=== PATIENT | female | born 1970 | race Caucasian/White ===

== ENCOUNTER 2017-04-12 14:16 | Emergency (ER) | payer MEDICARE, OTHER ==
[~2017-04-12] VITALS: Ht 157.5 cm; Wt 113.4 kg
[~2017-04-12 14:16] MED LIST: ASPI-702; BENZ100C PO; BISA5TAB; BUPR300T3; CRESTOR40 MG; CYCL-331; DOXY100T PO; EZET10TA18; GABA-586 PO; LORA0.5T96; METF10002 PO; NITR0.4T22; OMEP20CA9; PRAS10TA9; PRED20TA PO; PYRI60TA2 PO; TRAM-48; ZOLP5TAB PO
[2017-04-12 14:45] VITALS: BP 164/81
--- NOTE | 2017-04-12 18:03 | ED.ADGEN ---
Past History Past Medical History: Cancer, COPD, Diabetes, Fibromyalgia, [place], Other Past Surgical History: Hysterectomy, Oophorectomy, Spleenectomy, Other Smoking: Quit Less Than 1 Year Additional Smoking Information: 1 pack/day Alcohol Use: None Drug Use: None Adult General Chief Complaint Chief Complaint Right upper eyelid swelling HPI HPI Patient is a 46-year-old female presents with right upper eyelid swelling upon waking this morning. Patient states she had a cat hair underneath her upper eyelid yesterday which required surgical to remove. Patient denies foreign body sensation, but awoke with right upper eyelid swelling. Patient took Benadryl which is partial improvement. Patient also reports light crusting over lateral canthus. Denies foreign body sensation, eye tearing, change of vision, and tearing. Patient does not wear reactive lenses or glasses. No other symptoms or complaints. Review of Systems Review of Systems Review symptoms as per history of present illness. All other review symptoms are negative. . Allergies Allergies Allergies Coded Allergies Type Severity Reaction Last Updated Verified azithromycin Allergy Severe 05/13/15 Yes adhesive Allergy Intermediate tape 05/13/15 Yes fenofibrate Allergy Intermediate 05/13/15 Yes latex Allergy Intermediate 05/13/15 Yes morphine Adverse Reaction Intermediate Nausea and Vomiting 05/13/15 Yes Physical Exam Physical Exam Constitutional: Well developed, well nourished, no acute distress, non-toxic appearance. Eyes: Pupils PERRL, conjunctiva noninjected, allergic type swelling of left upper eyelid, no induration or cellulitis. No identifiable foreign bodies under upper or lower eyelid. No crusting. No pain with ocular motion Current Patient Data Vital Signs Vital Signs Date Time Temp Pulse Resp B/P (MAP) Pulse Ox O2 Delivery O2 Flow Rate FiO2 04/12/17 14:45 98.4 104 16 96 Room Air EKG EKG [] Radiology/Procedures Radiology/Procedures [] Course & Med Decision Making Course & Med Decision Making Pertinent Labs and Imaging studies reviewed. (See chart for details) [Eyelid swelling consistent with allergic blepharitis. No foreign body identified on comprehensive eye exam. Recommend continued supportive care. Topical antibiotics prescribed. PCP/ophthalmology follow-up as needed. Return precautions reviewed.] Final Impression Final Impression [1. allergic blepharitis] Problems: Dragon Disclaimer Dragon Disclaimer This electronic medical record was generated, in whole or in part, using a voice recognition dictation system. DAMIAN NOLAND DO Apr 12, 2017 18:03
[2017-04-13] MEDS ORDERED: HYDR-971 PO (18:46)
== END 2017-04-12 15:30 | disposition home or self-care (01) ==
LOC: ER 14:16
DX: H01.001 Unspecified blepharitis right upper eyelid (principal); E11.9 Type 2 diabetes mellitus without complications; M79.7 Fibromyalgia; I25.2 Old myocardial infarction; J44.9 Chronic obstructive pulmonary disease, unspecified; Z87.891 Personal history of nicotine dependence; Z88.5 Allergy status to narcotic agent; Z88.8 Allergy status to other drugs, medicaments and biological substances; Z88.1 Allergy status to other antibiotic agents; Z91.040 Latex allergy status
CPT/HCPCS: 99283

== ENCOUNTER 2017-04-13 17:35 | Emergency (ER) | payer MEDICARE, OTHER ==
[~2017-04-13] VITALS: Ht 157.5 cm; Wt 113.4 kg
[2017-04-13 17:47] VITALS: BP 135/66
--- NOTE | 2017-04-13 18:12 | PHYS DOC ---
Past History Past Medical History: Cancer, COPD, Diabetes, Fibromyalgia, [place], Other Past Surgical History: Hysterectomy, Oophorectomy, Spleenectomy, Other Smoking: Quit Less Than 1 Year Alcohol Use: None Drug Use: None Adult General Chief Complaint Chief Complaint: EYE PROBLEMS HPI HPI Patient is a 46 year old female who presents with worsening of left eye pain and swelling. She was seen here last night and treated for an allergic reaction vs infection to her left eye. She originally awakened on Friday with the left eye red and swollen. Her daughter saw a cat hair in her eye and removed it. She took benadryl but it didnt' improve. She was seen here last night and placed on Sulfacetamide drops. Now she states the eye is worsened. 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 Did not bring her visual correction with her (her spouse drove ). No fever. No drainage. Review of Systems Review of Systems Constitutional: Denies fever or chills Eyes: see HPI HENT: Denies nasal congestion or sore throat Allergies Allergies Allergies Coded Allergies Type Severity Reaction Last Updated Verified azithromycin Allergy Severe 05/13/15 Yes adhesive Allergy Intermediate tape 05/13/15 Yes fenofibrate Allergy Intermediate 05/13/15 Yes latex Allergy Intermediate 05/13/15 Yes morphine Adverse Reaction Intermediate Nausea and Vomiting 05/13/15 Yes Physical Exam Physical Exam Constitutional: Well developed, well nourished, no acute distress, non-toxic appearance. Eyes: PERRLA, EOMI. Visual acuity (cannot perform right eye as patient did not wear glasses) and left eye 20/50. Left eye with edema of yamilex-orbital area. No weeping. Clear tears. Eye exam with SLIT LAMP: conjunctival irritation and injection. Eyelid everted with no retained foreign body. No corneal foreign body. Fluorescein staining with no dendritic staining and no FB or abrasion staining. Current Patient Data Vital Signs Vital Signs Date Time Temp Pulse Resp B/P (MAP) Pulse Ox O2 Delivery O2 Flow Rate FiO2 04/13/17 17:47 97.9 103 20 97 Room Air BP 133/70 Course & Med Decision Making Course & Med Decision Making evaluated patient upon my arrival on shift at 1800 PM. Slit lamp exam performed. Probable chemical irritation to the sulfacetamide. STOP THE SULFACETAMIDE DROPS IMMEDIATELY. Placed on tobrex ointment. Dosed with hydrocodone po here. Decadron po 4 mg once here (she can adjust her sugars). She will see her eye doctor in the am for recheck (stressed importance of recheck). Dragon Disclaimer Dragon Disclaimer This chart was dictated in whole or in part using Voice Recognition software in a busy, high-work load, and often noisy Emergency Department environment. It may contain unintended and wholly unrecognized errors or omissions. Departure Departure: Impression: Primary Impression: Irritation of left eye Additional Impression: Chemical conjunctivitis of left eye Disposition: HOME, SELF-CARE Condition: STABLE Referrals: YASHIRA PAYNE MD (PCP) Patient Instructions: Conjunctivitis, Chemical Additional Instructions: I BELIEVE YOU HAVE A CHEMICAL IRRITATION FROM THE SULFACETAMIDE DROPS. STOP THEM IMMEDIATELY. PLACE THE TOBREX OINTMENT IN YOUR EYE FOUR TIMES A DAY. YOU NEED TO SEE YOUR EYE DOCTOR TOMORROW FOR RECHECK. YOU WERE A DOSE PREDNISONE TO HELP WITH THE REACTION (ADJUST YOUR SUGARS NEEDED).YOU WERE DOSED WITH PAIN MEDS HERE. Scripts Hydrocodone Bit/Acetaminophen (NORCO 5-325 TABLET) 1 Each Tablet 1-2 TAB PO Q4-6HRS, #10 TAB Prov: ADEEL BALBUENA MD 04/13/17 Problem Qualifiers ADEEL BALBUENA MD Apr 13, 2017 18:12
[2017-04-13] MEDS ORDERED: TETRACAINE 0.5% OPHTH SOLUTION 4ML BOTTLE. OS ONE (18:15)
[2017-04-13] MEDS ORDERED: FLUORESCEIN 1MG EYE STRIP. OS ONE (18:15)
[2017-04-13] MEDS ORDERED: HYDROcodone/APAP 5/325MG 1 TAB TABLET PO ONE (18:45)
[2017-04-13] MEDS ORDERED: GENTAMICIN 0.3% OPHTH OINTMENT 3.5GM TUBE. OS ONE (18:45)
[2017-04-13] MEDS ORDERED: HYDR-971 PO (18:46)
[2017-04-13] MEDS ORDERED: DEXAMETHASONE 4 MG TABLET PO ONE (19:00)
== END 2017-04-13 19:03 | disposition home or self-care (01) ==
LOC: ER 17:35
DX: H10.212 Acute toxic conjunctivitis, left eye (principal); J44.9 Chronic obstructive pulmonary disease, unspecified; E11.9 Type 2 diabetes mellitus without complications; M79.7 Fibromyalgia; I25.2 Old myocardial infarction; Z87.891 Personal history of nicotine dependence; Z88.5 Allergy status to narcotic agent; Z88.8 Allergy status to other drugs, medicaments and biological substances; Z88.1 Allergy status to other antibiotic agents; Z91.040 Latex allergy status
CPT/HCPCS: 99284; J8540

== ENCOUNTER → 2017-07-24 | Outpatient (CLI) | payer MEDICARE, OTHER ==
[~2017-07-24] MED LIST changes: +HYDR-971 PO
--- NOTE | 2017-07-24 13:35 | RAD ---
2 views of the Chest 07/24/2017 2:00 AM Indication: SHORT OF AIR Comparison: None Findings: There is no focal consolidation or infiltrate identified. There is no effusion or pneumothorax. The cardiomediastinal silhouette and pulmonary vasculature are within normal limits. No osseous abnormality is identified. Impression: No evidence of acute cardiopulmonary process.
== END | disposition home or self-care (01) ==
LOC: DXRAD 12:30
PROVIDERS: ATTEND Internal Medicine Critical Care Medicine
DX: R06.02 Shortness of breath (principal); J44.9 Chronic obstructive pulmonary disease, unspecified; F17.200 Nicotine dependence, unspecified, uncomplicated
CPT/HCPCS: 71020

== ENCOUNTER 2017-10-12 00:10 | Emergency (ER) | payer OTHER ==
[~2017-10-12] VITALS: Ht 157.5 cm; Wt 113.4 kg
[2017-10-12 00:10] VITALS: BP 109/53
--- NOTE | 2017-10-12 00:17 | PHYS DOC ---
Past History Past Medical History: Cancer, COPD, Diabetes, Fibromyalgia, [place], Other Past Surgical History: Hysterectomy, Oophorectomy, Spleenectomy, Other Smoking: Quit Less Than 1 Year Alcohol Use: None Drug Use: None Adult General Chief Complaint Chief Complaint: ABDOMINAL PAIN HPI HPI Patient is a 47 year old female who presents with abdominal pain and back pain. She states it started last week and then tonight it got really severe where she is can take it anymore. She states it hurt in her right upper quadrant her left lower quadrant and in her back. She states it hurts so bad she couldn't get up to get her tramadol so she called 911. They gave her 5 IM Valium and then 2.5 IV Valium. She arrived here somnolent but was able to wake up and tell me about her discomfort is states is completely resolved now. She states she's had her spleen removed her uterus in the past. She states she's been feeling fine other than last week and today she's been having normal bowel movements no nausea or vomiting. She states she's had a heart attack before last time and had to have a stent. She states she had no discomfort with her last heart attack. Review of Systems Review of Systems Constitutional: Denies fever or chills [] Eyes: Denies change in visual acuity, redness, or eye pain [] HENT: Denies nasal congestion or sore throat [] Respiratory: Denies cough or shortness of breath [] Cardiovascular: No additional information not addressed in HPI [] GI: Denies abdominal pain, nausea, vomiting, bloody stools or diarrhea [] : Denies dysuria or hematuria [] Musculoskeletal: Denies back pain or joint pain [] Integument: Denies rash or skin lesions [] Neurologic: Denies headache, focal weakness or sensory changes [] Endocrine: Denies polyuria or polydipsia [] All other systems were reviewed and found to be within normal limits, except as documented in this note. Allergies Allergies Allergies Coded Allergies Type Severity Reaction Last Updated Verified azithromycin Allergy Severe 05/13/15 Yes adhesive Allergy Intermediate tape 05/13/15 Yes fenofibrate Allergy Intermediate 05/13/15 Yes latex Allergy Intermediate 05/13/15 Yes morphine Adverse Reaction Intermediate Nausea and Vomiting 05/13/15 Yes Physical Exam Physical Exam Constitutional: Well developed, well nourished, no acute distress, non-toxic appearance. [] HENT: Normocephalic, atraumatic, bilateral external ears normal, oropharynx moist, no oral exudates, nose normal. [] Eyes: PERRLA, EOMI, conjunctiva normal, no discharge. [] Neck: Normal range of motion, no tenderness, supple, no stridor. [] Cardiovascular:Heart rate regular rhythm, no murmur [] Lungs & Thorax: Bilateral breath sounds clear to auscultation [] Abdomen: Bowel sounds normal, soft, no tenderness, no masses, no pulsatile masses. [] Skin: Warm, dry, no erythema, no rash. [] Back: No tenderness, no CVA tenderness. [] Extremities: No tenderness, no cyanosis, no clubbing, ROM intact, no edema. [] Neurologic: Alert and oriented X 3, normal motor function, normal sensory function, no focal deficits noted. [] Psychologic: Affect normal, judgement normal, mood normal. [] EKG EKG EKG shows sinus tachycardia 304 bpm without any concerning ST elevations or T- wave inversions, left axis deviation noted, QTC 445 ms, as interpreted by me. Radiology/Procedures Radiology/Procedures Acute abdominal series did not show any focal consolidations, pneumothorax, free air under the diaphragm, foreign bodies or other abnormalities as interpreted by me. Impressions: Abdominal pain Course & Med Decision Making Course & Med Decision Making Pertinent Labs and Imaging studies reviewed. (See chart for details) Labs and acute ulcers was obtained. Patient did not want to stay for a CT scan of her abdomen pelvis and signed out AMA. She is instructed return back to ER for symptoms return or she has other abnormalities. Prior to leaving I did give her 5 mg Valium prescription 1 tablet 3 times a day when necessary muscle spasm #15. Return precautions given she is to follow-up with primary care physician. Jacqueline Disclaimer Dragon Disclaimer This electronic medical record was generated, in whole or in part, using a voice recognition dictation system. Departure Departure: Impression: Primary Impression: Abdominal pain Disposition: AGAINST MEDICAL ADVICE Condition: STABLE Referrals: YASHIRA PAYNE MD (PCP) Patient Instructions: Abdominal Pain Scripts Diazepam (VALIUM) 5 Mg Tablet 5 MG PO TID Y for MUSCLE SPASTICITY, #15 TAB Prov: JOHNATHON MERCADO MD 10/12/17 JOHNATHON MERCADO MD Oct 12, 2017 00:17
[2017-10-12] MEDS ORDERED: IV NORMAL SALINE 1,000ML 1,000 ML IV SCH (00:30)
--- NOTE | 2017-10-12 00:30 | EKG ---
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
[2017-10-12 00:38] LABS: BASO % 0 % (0-3); EOS # 0.1 x10^3/uL (0.0-0.7); EOS % 1 % (0-3); HEMATOCRIT 40.3 % (36.0-47.0); HEMOGLOBIN 14.4 g/dL (12.0-15.5); LYMPH # 8.3 x10^3/uL (1.0-4.8); LYMPH % 39 % (24-48); MEAN CORPUSCULAR HEMOGLOBIN 32 pg (25-35); MEAN CORPUSCULAR HGB CONC 36 g/dL (31-37); MEAN CORPUSCULAR VOLUME 89 fL (79-100); MONO # 1.6 x10^3/uL (0.0-1.1); MONO % 7 % (0-9); NEUT # 11.1 x10^3uL (1.8-7.7); NEUT % 52 % (31-73); PLATELET COUNT 457 x10^3/uL (140-400); RED BLOOD COUNT 4.51 x10^6/uL (3.50-5.40); RED CELL DISTRIBUTION WIDTH 13.6 % (11.5-14.5); WHITE BLOOD COUNT 21.1 x10^3/uL (4.0-11.0)
[2017-10-12 01:14] LABS: ALBUMIN 3.7 g/dL (3.4-5.0); CALCIUM 9.3 mg/dL (8.5-10.1); CREATININE 0.8 mg/dL (0.6-1.0); DIRECT BILIRUBIN 0.1 mg/dL (0.0-0.2); GFR 77.6; POTASSIUM 3.6 mmol/L (3.5-5.1); TOTAL BILIRUBIN 0.4 mg/dL (0.2-1.0); TOTAL PROTEIN 7.1 g/dL (6.4-8.2)
[2017-10-12 01:21] LABS: % BANDS 4 % (0-9); % SEGS 49 % (35-66); PLT ESTIMATE INCREASED (ADEQUATE)
[2017-10-12 01:22] LABS: TOXIC GRANULATION SLIGHT
[2017-10-12 01:23] LABS: % LYMPHS 40 % (24-48); % MONOS 7 % (0-10); TOXIC VACUOLATION SLIGHT
[2017-10-12 01:51] LABS: BARBITURATES NEG (NEG); BENZODIAZEPINES POS (NEG); CANNABINOIDS NEG (NEG); COCAINE NEG (NEG); METHADONE NEG (NEG); OPIATES NEG (NEG); PHENCYCLIDINE NEG (NEG)
[2017-10-12 01:56] LABS: AMPHETAMINE/METHAMPHETAMINE NEG (NEG)
[2017-10-12] MEDS ORDERED: DIAZ5TAB PO (01:58)
--- NOTE | 2017-10-12 09:46 | RAD ---
Indication: Abdominal pain. History of hysterectomy. Technique: Multiple views of the abdomen Comparison: None Findings: Heart is normal in size. Lungs are clear. No pneumothorax or pleural effusion. No free intraperitoneal air. No abnormally dilated bowel loops or air-fluid levels. Stool is seen in the right aspect of the colon. No abnormal calcific density seen projecting over the abdomen. Visualized osseous structures are within normal limits. Impression: No acute radiographic findings. Evidence of bowel obstruction.
== END 2017-10-12 01:56 | disposition left against medical advice (07) ==
LOC: ER 00:10
DX: R10.11 Right upper quadrant pain (principal); R10.31 Right lower quadrant pain; J44.9 Chronic obstructive pulmonary disease, unspecified; I25.2 Old myocardial infarction; E11.9 Type 2 diabetes mellitus without complications; M79.7 Fibromyalgia; Z90.49 Acquired absence of other specified parts of digestive tract; Z90.81 Acquired absence of spleen; Z90.721 Acquired absence of ovaries, unilateral; Z87.891 Personal history of nicotine dependence; Z88.5 Allergy status to narcotic agent; Z88.8 Allergy status to other drugs, medicaments and biological substances; Z88.1 Allergy status to other antibiotic agents; Z91.040 Latex allergy status
CPT/HCPCS: 36415; 74022; 80048; 80076; 80307; 82553; 83690; 83735; 83880; 84484; 85007; 85025; 85610; 85730; 93005; 99285-25; G0479

== ENCOUNTER 2018-04-10 18:38 | Emergency (ER) | payer OTHER ==
[~2018-04-10] VITALS: Ht 157.5 cm; Wt 113.4 kg
[~2018-04-10 18:38] MED LIST changes: +DIAZ5TAB PO; -METF10002 PO; +METF10003 PO
[2018-04-10] MEDS ORDERED: IV NORMAL SALINE 1,000ML 1,000 ML IV ONE (19:00)
--- NOTE | 2018-04-10 19:01 | PHYS DOC ---
Past History Past Medical History: Cancer, COPD, Diabetes, Fibromyalgia, [place], Other Past Surgical History: Hysterectomy, Oophorectomy, Spleenectomy, Other Smoking: Quit Less Than 1 Year Alcohol Use: None Drug Use: None Adult General Chief Complaint Chief Complaint: ALTERED MENTAL STATUS HPI HPI Patient is a 47 yo female who presents to the emergency department complaining of abdominal pain and leg spasms which started upon waking approximately 1 hour ago. Reports she feels like she was in a "bubble". Reports felt like she couldn't "think straight.". She denies any chest pain but does have a history of CAD with stent placement. Patient rates her pain as 4/10 in severity but says that the pain was worse earlier in the day. She says that her leg spasms have been worse since her "water pill" dosage was adjusted. Patient reports concerned that she might be dehydrated. Reports her tongue is very dry. Patient reports her symptoms are now resolved. Review of Systems Review of Systems Constitutional: Denies fever or chills [] Eyes: Denies vision changes. Denies eye pain [] HENT: Denies nasal congestion or sore throat; reports dry mouth Respiratory: Denies cough or shortness of breath [] Cardiovascular: Denies chest pain and palpitations[] GI: Endorses abdominal pain. Denies bloody stools [] : Denies dysuria or hematuria [] Musculoskeletal: Denies back pain or joint pain [] Neurologic: Endorses headache. Complains of "tunnel vision" when symptoms are severe. [] Complete systems were reviewed and found to be within normal limits, except as documented in this note. Allergies Allergies Allergies Coded Allergies Type Severity Reaction Last Updated Verified azithromycin Allergy Severe 05/13/15 Yes adhesive Allergy Intermediate tape 05/13/15 Yes fenofibrate Allergy Intermediate 05/13/15 Yes latex Allergy Intermediate 05/13/15 Yes morphine Adverse Reaction Intermediate Nausea and Vomiting 05/13/15 Yes Physical Exam Physical Exam Constitutional: Well developed, well nourished, no acute distress, non-toxic appearance. Patient appears anxious HENT: Normocephalic, atraumatic, mucous membranes dry Eyes: PERRL, EOMI. Neck: Normal range of motion, no tenderness, supple, no stridor. [] Cardiovascular: Heart rate regular rhythm, no murmur [] Lungs & Thorax: Bilateral breath sounds clear to auscultation [] Abdomen: Soft, no discernible abdominal pain on palpation Skin: Warm, dry, no erythema, no rash. [] Back: No tenderness, no CVA tenderness. [] Extremities: No tenderness, no cyanosis, no clubbing, ROM intact, no edema. [] Neurologic: Alert and oriented X 3, normal motor function, normal sensory function, no focal deficits noted. [] Psychologic: Affect normal, judgement normal; Anxious [] NIHSS 0 EKG EKG NSR at 92bpm, No ST elevation, taken at 1915 on 04/10/18 Radiology/Procedures Radiology/Procedures PROCEDURE: CT HEAD WO CONTRAST PQRS Compliance Statement: One or more of the following individualized dose reduction techniques were utilized for this examination: 1. Automated exposure control 2. Adjustment of the mA and/or kV according to patient size 3. Use of iterative reconstruction technique CT head without contrast 04/10/2018 7:00 PM INDICATION: Weakness, altered mental status COMPARISON: CT head November 16, 2007 TECHNIQUE: Multiple axial CT images of the head were obtained from skull base through the vertex without intravenous contrast. FINDINGS: Head: Ventricles, sulci and basal cisterns are within normal limits. There is no hydrocephalus. Sanchez-white matter differentiation is normal. There is no acute intracranial hemorrhage. There is no mass, mass effect or midline shift. Posterior fossa is normal in appearance. Visualized portions of the orbits are normal. Paranasal sinuses are well aerated. Mastoid air cells are well aerated. Scalp and calvaria are normal. IMPRESSION: No acute intracranial hemorrhage. Electronically signed by: Steven Pacheco MD (04/10/2018 8:30 PM) [facility] CXR: 2 view: Preliminary interpretation by ED physician: No acute process DICTATED AND SIGNED BY: STEVEN PACHECO MD DATE: 04/10/182028 CXR 2 VIEW: Preliminary interpretation by ED physician No acute process Course & Med Decision Making Course & Med Decision Making Pertinent Labs and Imaging studies reviewed. (See chart for details) Patient is a 47 yo female who presents to the emergency department complaining altered mental status that is now resolved. Patient also complains of abdominal pain and leg spasms which is been ongoing. Patient reports she thinks it might be secondary to her diuretic. Mucous membranes dry upon arrival. IV fluid hydration provided. Patient neurologically intact. NIHSS 0. Labs obtained and posted to chart. Hemoglobin concentrated. UA with signs of yeast. CT head without acute process. Chest x-ray clear. EKG stable. Patient offered admission for further evaluation. Patient declined and will follow closely with her PCP. Patient stable for discharge with outpatient follow-up with PCP. Discussed findings and plan with patient and family, who acknowledge understanding and agreement. Dragon Disclaimer Dragon Disclaimer This electronic medical record was generated, in whole or in part, using a voice recognition dictation system. Departure Departure: Impression: Primary Impression: Altered mental status Additional Impressions: Weakness Dehydration Yeast cystitis Disposition: HOME, SELF-CARE Condition: IMPROVED Referrals: YASHIRA PAYNE MD (PCP) Patient Instructions: Altered Mental Status, Candidal Vulvovaginitis, Easy-to- Read, Dehydration, Adult, [id number]-[id number], Weakness, Gvec-hl-Yomc Scripts Fluconazole (DIFLUCAN) 200 Mg Tablet 1 TAB PO ONCE PRN for SEE COMMENTS, #2 TAB May take additional tab 5 days later if symptoms persist. Prov: LISA MANZANO DO 04/10/18 Problem Qualifiers Primary Impression: Altered mental status Altered mental status type: unspecified Qualified Codes: R41.82 - Altered mental status, unspecified LISA MANZANO DO Apr 10, 2018 19:01
--- NOTE | 2018-04-10 19:17 | EKG ---
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
[2018-04-10 19:40] LABS: BASO # 0.1 x10^3/uL (0.0-0.2); BASO % 1 % (0-3); EOS # 0.8 x10^3/uL (0.0-0.7); EOS % 4 % (0-3); HEMATOCRIT 46.2 % (36.0-47.0); HEMOGLOBIN 16.4 g/dL (12.0-15.5); LYMPH # 8.5 x10^3/uL (1.0-4.8); LYMPH % 46 % (24-48); MEAN CORPUSCULAR HEMOGLOBIN 31 pg (25-35); MEAN CORPUSCULAR HGB CONC 36 g/dL (31-37); MEAN CORPUSCULAR VOLUME 88 fL (79-100); MONO # 1.6 x10^3/uL (0.0-1.1); MONO % 9 % (0-9); NEUT # 7.6 x10^3uL (1.8-7.7); NEUT % 41 % (31-73); PLATELET COUNT 517 x10^3/uL (140-400); RED BLOOD COUNT 5.25 x10^6/uL (3.50-5.40); RED CELL DISTRIBUTION WIDTH 13.8 % (11.5-14.5); WHITE BLOOD COUNT 18.6 x10^3/uL (4.0-11.0)
[2018-04-10 19:48] LABS: MAGNESIUM 2.1 mg/dL (1.8-2.4)
[2018-04-10 20:10] LABS: BACTERIA,URINE FEW /HPF (0-FEW); BILIRUBIN,URINE NEG (NEG); CLARITY,URINE HAZY; COLOR,URINE YELLOW; GLUCOSE,URINE >=1000 mg/dL (NEG); NITRITE,URINE NEG (NEG); RBC,URINE OCC /HPF (0-2); SQUAMOUS EPITHELIAL CELL,UR FEW /LPF; UROBILINOGEN,URINE 0.2 mg/dL (0.2 mg/dL); WBC,URINE OCC /HPF (0-4); YEAST,URINE PRESENT /HPF
--- NOTE | 2018-04-10 20:34 | RAD ---
PQRS Compliance Statement: One or more of the following individualized dose reduction techniques were utilized for this examination: 1. Automated exposure control 2. Adjustment of the mA and/or kV according to patient size 3. Use of iterative reconstruction technique CT head without contrast 04/10/2018 7:00 PM INDICATION: Weakness, altered mental status COMPARISON: CT head November 16, 2007 TECHNIQUE: Multiple axial CT images of the head were obtained from skull base through the vertex without intravenous contrast. FINDINGS: Head: Ventricles, sulci and basal cisterns are within normal limits. There is no hydrocephalus. Sanchez-white matter differentiation is normal. There is no acute intracranial hemorrhage. There is no mass, mass effect or midline shift. Posterior fossa is normal in appearance. Visualized portions of the orbits are normal. Paranasal sinuses are well aerated. Mastoid air cells are well aerated. Scalp and calvaria are normal. IMPRESSION: No acute intracranial hemorrhage. Electronically signed by: Trini Grayson MD (04/10/2018 8:30 PM) [facility]
[2018-04-10 21:20] VITALS: BP 134/73
[2018-04-10] MEDS ORDERED: FLUC200T PO (21:26)
[2018-04-10 22:55] LABS: % BANDS 1 % (0-9); % EOS 2 % (0-5); % LYMPHS 34 % (24-48); % MONOS 11 % (0-10); % SEGS 37 % (35-66); PLT ESTIMATE INCREASED (ADEQUATE)
[2018-04-10 22:58] LABS: HOWELL-JOLLY BODIES PRESENT
[2018-04-10 22:59] LABS: % ATYL 15 % (0-0)
--- NOTE | 2018-04-11 07:40 | RAD ---
Chest, PA and Lateral: Technique: PA and lateral views of the chest were obtained. History: Weakness, congestive heart failure. Comparison: 07/24/2017. Findings: The heart and pulmonary vasculature appear within normal limits. The lungs are clear. The pleural margins are clear. Impression: No acute chest process is seen. Electronically signed by: Huey Palacio MD (04/11/2018 7:37 AM) [facility]
== END 2018-04-10 21:35 | disposition home or self-care (01) ==
LOC: ER 18:38
DX: R41.82 Altered mental status, unspecified (principal); R53.1 Weakness; E86.0 Dehydration; B37.41 Candidal cystitis and urethritis; J44.9 Chronic obstructive pulmonary disease, unspecified; E11.9 Type 2 diabetes mellitus without complications; M79.7 Fibromyalgia; I25.2 Old myocardial infarction; Z90.710 Acquired absence of both cervix and uterus; Z90.722 Acquired absence of ovaries, bilateral; Z90.81 Acquired absence of spleen; Z87.891 Personal history of nicotine dependence; Z88.1 Allergy status to other antibiotic agents; Z88.8 Allergy status to other drugs, medicaments and biological substances; Z88.5 Allergy status to narcotic agent; Z91.040 Latex allergy status
CPT/HCPCS: 36415; 70450; 71046; 81001; 82553; 83735; 84484; 85007; 85025; 93005; 96360; 99285-25; J7030

== ENCOUNTER 2018-06-07 05:06 | Emergency (ER) | payer OTHER ==
[~2018-06-07] VITALS: Ht 157.5 cm; Wt 112.0 kg
[~2018-06-07 05:06] MED LIST changes: +FLUC200T PO; -METF10003 PO; +METF10007 PO
[2018-06-07 05:10] VITALS: BP 107/63
--- NOTE | 2018-06-07 05:12 | ED.ADGEN ---
Past History Past Medical History: Anxiety, CAD, Cancer, COPD, Diabetes, Fibromyalgia, NM, Other (RICHA LANDRY MD) Past Surgical History: Cancer Surgery, Hysterectomy, Oophorectomy, Spleenectomy , Other (RICHA LANDRY MD) Smoking: Quit Less Than 1 Year Alcohol Use: None Drug Use: None (RICHA LANDRY MD) Adult General Chief Complaint Chief Complaint ".. I am having severe abd. spasms.. I ve had them before.. I ate some veg. soup approximately 2 hours ago and then I develop severe abdomen pain.. " (RICHA LANDRY MD) HPI HPI Patient is a 47 year old female who presents with above hx and complaints of epigastric and mid abdomen pain for past two hours. Pt. reports recent elevated blood glucose levels up to 400. Glucose by paramedics was 107. No history of bad food intake. No history of specific ill contacts. No history of travel. No history of trauma. Patient has history of fibromyalgia, COPD, diabetes, myasthenia, CHF, sperocytosis, anemia, CAD, UTI, cervical cancer and hysterectomy. Pt. has episodes of abd. spasms felt to be secondary to adhesions and her multiple medical conditions. Rates pain as 10/10. Is at risk for immunosuppression secondary to splenectomy. Patient normally follows Dr. Schmidt. (RICHA LANDRY MD) Review of Systems Review of Systems Constitutional: Denies fever or chills [] Eyes: Denies change in visual acuity, redness, or eye pain [] HENT: Denies nasal congestion or sore throat [] Respiratory: Denies cough or shortness of breath [] Cardiovascular: No additional information not addressed in HPI [] GI: complaints of abdominal pain, nausea. Denies vomiting, bloody stools or diarrhea [] : Denies dysuria or hematuria [] Musculoskeletal: Denies back pain or joint pain [] Integument: Denies rash or skin lesions [] Neurologic: Denies headache, focal weakness or sensory changes [] Endocrine: Denies polyuria or polydipsia [] All other systems were reviewed and found to be within normal limits, except as documented in this note. (RICHA LANDRY MD) Family History Family History Non-contributory (RICHA LANDRY MD) Current Medications Current Medications Current Medications Medications (Trade) Dose Ordered Sig/Zahra Start Time Stop Time Status Last Admin Dose Admin Ceftriaxone Sodium (Rocephin Im) 1 gm 1X ONCE 06/07/18 06:00 06/07/18 06:01 DC Ceftriaxone Sodium (Rocephin) 1 gm STK-MED ONCE 06/07/18 05:52 06/07/18 05:53 DC Famotidine (Pepcid Vial) 20 mg 1X ONCE 06/07/18 05:30 06/07/18 05:31 DC 06/07/18 05:30 20 MG Fentanyl Citrate (Fentanyl 2ml Vial) 25 mcg 1X ONCE 06/07/18 05:30 06/07/18 05:31 DC 06/07/18 05:31 25 MCG Metronidazole 100 ml @ 100 mls/hr 1X ONCE 06/07/18 06:00 06/07/18 06:59 Ondansetron HCl (Zofran) 8 mg 1X ONCE 06/07/18 05:30 06/07/18 05:31 DC 06/07/18 05:31 8 MG Sodium Chloride 1,000 ml @ 1,000 mls/hr Q1H 06/07/18 05:30 06/07/18 06:29 DC 06/07/18 05:30 1,000 MLS/HR (DAMIAN KIRK DO) Allergies Allergies Allergies Coded Allergies Type Severity Reaction Last Updated Verified azithromycin Allergy Severe 05/13/15 Yes adhesive Allergy Intermediate tape 05/13/15 Yes fenofibrate Allergy Intermediate 05/13/15 Yes latex Allergy Intermediate 05/13/15 Yes morphine Adverse Reaction Intermediate Nausea and Vomiting 05/13/15 Yes (DAMIAN KIRK DO) Physical Exam Physical Exam Constitutional: in acute distress, non-toxic appearance. [] HENT: Normocephalic, atraumatic, bilateral external ears normal, oropharynx moist, no oral exudates, nose normal. [] Eyes: PERRLA, EOMI, conjunctiva normal, no discharge. [Glasses. ] Neck: Normal range of motion, no tenderness, supple, no stridor. [] Cardiovascular:tachycardia heart rate regular rhythm, no murmur [] Lungs & Thorax: Bilateral breath sounds equal apex, basilar crackles and few rhonchi on auscultation . A few scattered wheezes clear with cough Abdomen: Bowel sounds normal, soft, epigastric and right mid abdomen tenderness , no masses, no pulsatile masses. [Marked obesity. Old surgery scars.] Skin: Warm, dry, no erythema, no rash. [] Back: No tenderness, no CVA tenderness. [] Extremities: No tenderness, no cyanosis, no clubbing, ROM intact, ankle edema. [ ] Scar Lt knee. Neurologic: Alert and oriented X 3, normal motor function, normal sensory function, no focal deficits noted. [] Psychologic: Affect anxious, judgement normal, mood normal. [] (RICHA LANDRY MD) Current Patient Data Vital Signs Vital Signs Date Time Temp Pulse Resp B/P (MAP) Pulse Ox O2 Delivery O2 Flow Rate FiO2 06/07/18 05:31 22 95 Room Air 06/07/18 05:10 98.5 95 (DAMIAN KIRK DO) Lab Results Laboratory Tests Test 06/07/18 05:15 06/07/18 05:30 White Blood Count 17.0 x10^3/uL (4.0-11.0) H Red Blood Count 5.21 x10^6/uL (3.50-5.40) Hemoglobin 16.2 g/dL (12.0-15.5) H Hematocrit 45.6 % (36.0-47.0) Mean Corpuscular Volume 88 fL (79-100) Mean Corpuscular Hemoglobin 31 pg (25-35) Mean Corpuscular Hemoglobin Concent 35 g/dL (31-37) Red Cell Distribution Width 13.7 % (11.5-14.5) Platelet Count 490 x10^3/uL (140-400) H Neutrophils (%) (Auto) 36 % (31-73) Lymphocytes (%) (Auto) 54 % (24-48) H Monocytes (%) (Auto) 7 % (0-9) Eosinophils (%) (Auto) 4 % (0-3) H Basophils (%) (Auto) 0 % (0-3) Neutrophils # (Auto) 6.1 x10^3uL (1.8-7.7) Lymphocytes # (Auto) 9.1 x10^3/uL (1.0-4.8) H Monocytes # (Auto) 1.1 x10^3/uL (0.0-1.1) Eosinophils # (Auto) 0.6 x10^3/uL (0.0-0.7) Basophils # (Auto) 0.0 x10^3/uL (0.0-0.2) Segmented Neutrophils % 34 % (35-66) L Band Neutrophils % 4 % (0-9) Lymphocytes % 54 % (24-48) H Monocytes % 6 % (0-10) Eosinophils % 2 % (0-5) Platelet Estimate Increased (ADEQUATE) Prothrombin Time 9.9 SEC (9.4-11.4) Prothrombin Time INR 0.9 (0.9-1.1) PTT 23 SEC (23-33) Sodium Level 139 mmol/L (136-145) Potassium Level 4.1 mmol/L (3.5-5.1) Chloride Level 100 mmol/L (98-107) Carbon Dioxide Level 28 mmol/L (21-32) Anion Gap 11 (6-14) Blood Urea Nitrogen 9 mg/dL (7-20) Creatinine 0.8 mg/dL (0.6-1.0) Estimated GFR (Cockcroft-Gault) 77.6 Glucose Level 162 mg/dL (70-99) H Lactic Acid Level 2.2 mmol/L (0.4-2.0) H Calcium Level 10.2 mg/dL (8.5-10.1) H Total Bilirubin 0.4 mg/dL (0.2-1.0) Direct Bilirubin 0.1 mg/dL (0.0-0.2) Aspartate Amino Transferase (AST) 22 U/L (15-37) Alanine Aminotransferase (ALT) 31 U/L (14-59) Alkaline Phosphatase 163 U/L (46-116) H Creatine Kinase 126 U/L (26-192) Creatine Kinase MB (Mass) 1.0 ng/mL (0.0-3.6) Creatine Kinase MB Relative Index 0.8 % (0-4) Troponin I Quantitative < 0.017 ng/mL (0-0.055) Total Protein 7.4 g/dL (6.4-8.2) Albumin 3.7 g/dL (3.4-5.0) Amylase Level 26 U/L (25-115) Lipase 127 U/L (73-393) Urine Collection Type U cath Urine Color Yellow Urine Clarity Clear Urine pH 7.0 Urine Specific Marion 1.020 Urine Protein Trace (NEG-TRACE) Urine Glucose (UA) >=1000 mg/dL (NEG) Urine Ketones (Stick) 15 mg/dL (NEG) Urine Blood Neg (NEG) Urine Nitrite Neg (NEG) Urine Bilirubin Neg (NEG) Urine Urobilinogen Dipstick 0.2 mg/dL (0.2 mg/dL) Urine Leukocyte Esterase Neg (NEG) Urine RBC 0 /HPF (0-2) Urine WBC Rare /HPF (0-4) Urine Squamous Epithelial Cells Occ /LPF Urine Bacteria 0 /HPF (0-FEW) Urine Opiates Screen Neg (NEG) Urine Methadone Screen Neg (NEG) Urine Barbiturates Neg (NEG) Urine Phencyclidine Screen Neg (NEG) Urine Amphetamine/Methamphetamine Neg (NEG) Urine Benzodiazepines Screen Neg (NEG) Urine Cocaine Screen Neg (NEG) Urine Cannabinoids Screen Neg (NEG) Urine Ethyl Alcohol Neg (NEG) (DAMIAN KIRK DO) Lab Results Laboratory Tests Test 06/07/18 05:15 06/07/18 05:30 White Blood Count 17.0 x10^3/uL (4.0-11.0) H Red Blood Count 5.21 x10^6/uL (3.50-5.40) Hemoglobin 16.2 g/dL (12.0-15.5) H Hematocrit 45.6 % (36.0-47.0) Mean Corpuscular Volume 88 fL (79-100) Mean Corpuscular Hemoglobin 31 pg (25-35) Mean Corpuscular Hemoglobin Concent 35 g/dL (31-37) Red Cell Distribution Width 13.7 % (11.5-14.5) Platelet Count 490 x10^3/uL (140-400) H Neutrophils (%) (Auto) 36 % (31-73) Lymphocytes (%) (Auto) 54 % (24-48) H Monocytes (%) (Auto) 7 % (0-9) Eosinophils (%) (Auto) 4 % (0-3) H Basophils (%) (Auto) 0 % (0-3) Neutrophils # (Auto) 6.1 x10^3uL (1.8-7.7) Lymphocytes # (Auto) 9.1 x10^3/uL (1.0-4.8) H Monocytes # (Auto) 1.1 x10^3/uL (0.0-1.1) Eosinophils # (Auto) 0.6 x10^3/uL (0.0-0.7) Basophils # (Auto) 0.0 x10^3/uL (0.0-0.2) Segmented Neutrophils % 34 % (35-66) L Band Neutrophils % 4 % (0-9) Lymphocytes % 54 % (24-48) H Monocytes % 6 % (0-10) Eosinophils % 2 % (0-5) Platelet Estimate Increased (ADEQUATE) Prothrombin Time 9.9 SEC (9.4-11.4) Prothrombin Time INR 0.9 (0.9-1.1) PTT 23 SEC (23-33) Sodium Level 139 mmol/L (136-145) Potassium Level 4.1 mmol/L (3.5-5.1) Chloride Level 100 mmol/L (98-107) Carbon Dioxide Level 28 mmol/L (21-32) Anion Gap 11 (6-14) Blood Urea Nitrogen 9 mg/dL (7-20) Creatinine 0.8 mg/dL (0.6-1.0) Estimated GFR (Cockcroft-Gault) 77.6 Glucose Level 162 mg/dL (70-99) H Lactic Acid Level 2.2 mmol/L (0.4-2.0) H Calcium Level 10.2 mg/dL (8.5-10.1) H Total Bilirubin 0.4 mg/dL (0.2-1.0) Direct Bilirubin 0.1 mg/dL (0.0-0.2) Aspartate Amino Transferase (AST) 22 U/L (15-37) Alanine Aminotransferase (ALT) 31 U/L (14-59) Alkaline Phosphatase 163 U/L (46-116) H Creatine Kinase 126 U/L (26-192) Creatine Kinase MB (Mass) 1.0 ng/mL (0.0-3.6) Creatine Kinase MB Relative Index 0.8 % (0-4) Troponin I Quantitative < 0.017 ng/mL (0-0.055) Total Protein 7.4 g/dL (6.4-8.2) Albumin 3.7 g/dL (3.4-5.0) Amylase Level 26 U/L (25-115) Lipase 127 U/L (73-393) Urine Collection Type U cath Urine Color Yellow Urine Clarity Clear Urine pH 7.0 Urine Specific Marion 1.020 Urine Protein Trace (NEG-TRACE) Urine Glucose (UA) >=1000 mg/dL (NEG) Urine Ketones (Stick) 15 mg/dL (NEG) Urine Blood Neg (NEG) Urine Nitrite Neg (NEG) Urine Bilirubin Neg (NEG) Urine Urobilinogen Dipstick 0.2 mg/dL (0.2 mg/dL) Urine Leukocyte Esterase Neg (NEG) Urine RBC 0 /HPF (0-2) Urine WBC Rare /HPF (0-4) Urine Squamous Epithelial Cells Occ /LPF Urine Bacteria 0 /HPF (0-FEW) Urine Opiates Screen Neg (NEG) Urine Methadone Screen Neg (NEG) Urine Barbiturates Neg (NEG) Urine Phencyclidine Screen Neg (NEG) Urine Amphetamine/Methamphetamine Neg (NEG) Urine Benzodiazepines Screen Neg (NEG) Urine Cocaine Screen Neg (NEG) Urine Cannabinoids Screen Neg (NEG) Urine Ethyl Alcohol Neg (NEG) (RICHA LANDRY MD) EKG EKG [] (RICHA LANDRY MD) Radiology/Procedures Radiology/Procedures [] (RICHA LANDRY MD) Impressions: Preliminary interpretation: No air-fluid levels are seen. There is some retained stool in the ascending colon. Nonspecific bowel gas pattern. (DAMIAN KIRK DO) Course & Med Decision Making Course & Med Decision Making Pertinent Labs and Imaging studies reviewed. (See chart for details) Labs pending at shift change. Reviewed presentation with Dr. Post. Dr. Post will make disposition of pt. [] (RICHA LANDRY MD) Course & Med Decision Making The patient's acute abdominal series is unremarkable except for some retained stool in the ascending colon. Patient states having 2 large bowel movements in the last day, so her stool retention may be improving. Her labs are remarkable only for an elevated white count. Patient states that she has a chronic elevated white count. She does not have a fever. Her pain is significantly improved at this time. She feels ready to go home. She is stable for discharge at this time. (DAMIAN KIRK DO) Final Impression Final Impression 1. Abdomen Pain 2. DM 3. Leukocytosis (RICHA LANDRY MD) Final Impression Epigastric abdominal pain, acute abdominal spasms (DAMIAN KIRK DO) Dragon Disclaimer Dragon Disclaimer This electronic medical record was generated, in whole or in part, using a voice recognition dictation system. (RICHA LANDRY MD) RICHA LANDRY MD Jun 07, 2018 05:12 DAMIAN KIRK DO Jun 07, 2018 06:36
[2018-06-07] MEDS ORDERED: FAMOTIDINE 20 MG/2 ML VIAL IVP ONE (05:30)
[2018-06-07] MEDS ORDERED: IV NORMAL SALINE 1,000ML 1,000 ML IV SCH (05:30)
[2018-06-07] MEDS ORDERED: ONDANSETRON PF 4 MG/2 ML VIAL. IV ONE (05:30)
[2018-06-07 05:38] LABS: BASO % 0 % (0-3); EOS # 0.6 x10^3/uL (0.0-0.7); EOS % 4 % (0-3); HEMATOCRIT 45.6 % (36.0-47.0); HEMOGLOBIN 16.2 g/dL (12.0-15.5); LYMPH # 9.1 x10^3/uL (1.0-4.8); LYMPH % 54 % (24-48); MEAN CORPUSCULAR HEMOGLOBIN 31 pg (25-35); MEAN CORPUSCULAR HGB CONC 35 g/dL (31-37); MEAN CORPUSCULAR VOLUME 88 fL (79-100); MONO # 1.1 x10^3/uL (0.0-1.1); MONO % 7 % (0-9); NEUT # 6.1 x10^3uL (1.8-7.7); NEUT % 36 % (31-73); PLATELET COUNT 490 x10^3/uL (140-400); RED BLOOD COUNT 5.21 x10^6/uL (3.50-5.40); RED CELL DISTRIBUTION WIDTH 13.7 % (11.5-14.5)
[2018-06-07] MEDS ORDERED: cefTRIAXone SODIUM 1 GM VIAL IV ONE (05:52)
[2018-06-07 05:53] LABS: % BANDS 4 % (0-9); % EOS 2 % (0-5); % LYMPHS 54 % (24-48); % MONOS 6 % (0-10); % SEGS 34 % (35-66)
[2018-06-07 05:54] LABS: BARBITURATES NEG (NEG); BENZODIAZEPINES NEG (NEG); CANNABINOIDS NEG (NEG); COCAINE NEG (NEG); METHADONE NEG (NEG); OPIATES NEG (NEG); PHENCYCLIDINE NEG (NEG)
[2018-06-07 05:54] LABS: PLT ESTIMATE INCREASED (ADEQUATE)
[2018-06-07 05:55] LABS: BILIRUBIN,URINE NEG (NEG); CLARITY,URINE CLEAR; COLOR,URINE YELLOW; GLUCOSE,URINE >=1000 mg/dL (NEG)
[2018-06-07 05:56] LABS: BACTERIA,URINE 0 /HPF (0-FEW); NITRITE,URINE NEG (NEG); RBC,URINE 0 /HPF (0-2); SQUAMOUS EPITHELIAL CELL,UR OCC /LPF; UROBILINOGEN,URINE 0.2 mg/dL (0.2 mg/dL); WBC,URINE RARE /HPF (0-4)
[2018-06-07 05:57] LABS: AMPHETAMINE/METHAMPHETAMINE NEG (NEG)
[2018-06-07 05:58] LABS: ALBUMIN 3.7 g/dL (3.4-5.0); CALCIUM 10.2 mg/dL (8.5-10.1); CREATININE 0.8 mg/dL (0.6-1.0); DIRECT BILIRUBIN 0.1 mg/dL (0.0-0.2); GFR 77.6; POTASSIUM 4.1 mmol/L (3.5-5.1); TOTAL BILIRUBIN 0.4 mg/dL (0.2-1.0); TOTAL PROTEIN 7.4 g/dL (6.4-8.2)
[2018-06-07] MEDS ORDERED: cefTRIAXone IM 1 GM VIAL IM ONE (06:00)
--- NOTE | 2018-06-07 08:46 | RAD ---
Examination: Acute abdomen series. HISTORY: History of abdominal pain COMPARISON: 10/12/2017. Findings: The cardiomediastinal silhouette grossly appears unremarkable. There is no acute infiltrate or visualized pneumothorax. No evidence of free air noted under the hemidiaphragms. The bowel gas pattern appears unremarkable. IMPRESSION: 1. No acute cardiopulmonary findings. 2. Unremarkable gas pattern. Electronically signed by: Huey Palacio MD (06/07/2018 8:42 AM) [facility]
--- NOTE | 2018-06-07 09:51 | EKG ---
[address] [address] Test Date: 2018-06-07 Test Time: 05:38:00 Pat Name: RELL WINKLER Department: Room: Gender: F Department Clerk: : 1970 Requested By: RICHA LANDRY Order Number: [id number] Reading MD: Jose Naranjo MD Measurements Intervals [place] Rate: 84 P: 36 MN: 154 QRS: 2 QRSD: 80 T: 9 QT: 382 QTc: 455 Interpretive Statements SINUS RHYTHM Electronically Signed On 06-08-2018 14:01:07 CDT by Jose Naranjo MD
== END 2018-06-07 06:55 | disposition home or self-care (01) ==
LOC: ER 05:06
DX: R10.13 Epigastric pain (principal); D72.829 Elevated white blood cell count, unspecified; E11.65 Type 2 diabetes mellitus with hyperglycemia; F41.9 Anxiety disorder, unspecified; I25.10 Atherosclerotic heart disease of native coronary artery without angina pectoris; J44.9 Chronic obstructive pulmonary disease, unspecified; E11.9 Type 2 diabetes mellitus without complications; M79.7 Fibromyalgia; I25.2 Old myocardial infarction; Z88.1 Allergy status to other antibiotic agents; Z88.8 Allergy status to other drugs, medicaments and biological substances; Z88.5 Allergy status to narcotic agent; Z91.040 Latex allergy status
CPT/HCPCS: 36415; 74022; 80048; 80076; 80307; 81001; 82150; 82553; 83605; 83690; 84484; 85007; 85025; 85610; 85730; 87040; 93005; 96361; 96374; 96375; 99285; J2405; J3010; S0028; G0479; J7030

== ENCOUNTER → 2020-08-21 | Outpatient (CLI) | payer OTHER ==
[~2020-08-21] MED LIST changes: -ASPI-702; -EZET10TA18; +EZET10TA20; +HYDR-3165 PO; -HYDR-971 PO; +LORA0.5T21; -LORA0.5T96; +OMEP20CA16; -OMEP20CA9; +[UNRECOGNIZED DRUG - CODE]
--- NOTE | 2020-08-21 15:07 | RAD ---
DATE: 08/21/2020 1:50 PM EXAM: MAMMO GIOVANA SHAHEEN THOMASAT HISTORY: Patient is due for screening. She presents for short-term follow-up probably benign left breast finding. COMPARISON: Left breast ultrasound of 04/23/2019 and bilateral mammogram of 04/07/2019. Bilateral CC and MLO views of the breasts were performed. Bilateral breast tomosynthesis was performed in CC and MLO projections. This study was interpreted with the benefit of Computerized Aided Detection (CAD). FINDINGS: Breast Density: FATTY The Breast Parenchyma is primarily fatty replaced. Breast parenchyma level density A. Benign calcifications in the subareolar left breast are present. No suspicious masses, microcalcifications or architectural distortion is present to suggest malignancy in either breast. The visualized axillae are unremarkable. Given the fatty breast parenchyma and benign mammographic appearance, additional imaging by ultrasound was deferred in favor of clinical follow-up and routine mammography. IMPRESSION: No mammographic evidence of malignancy. BI-RADS CATEGORY: 2 BENIGN FINDING(S) RECOMMENDED FOLLOW-UP: 12M 12 MONTH FOLLOW-UP Annual screening mammography is recommended, unless clinically indicated sooner based on symptoms or change in physical exam. PQRS compliance statement: Patient information was entered into a reminder system with a target due date for the next mammogram. Mammography is a sensitive method for finding small breast cancers, but it does not detect them all and is not a substitute for careful clinical examination. A negative mammogram does not negate a clinically suspicious finding and should not result in delay in biopsying a clinically suspicious abnormality. "Our facility is accredited by the [employer] Mammography Program."
== END ==
LOC: MAMMO 13:43
PROVIDERS: ATTEND Family Medicine
DX: R92.2 Inconclusive mammogram (principal)
CPT/HCPCS: 77066; G0279; 77062

== ENCOUNTER → 2021-08-28 | Outpatient (CLI) | payer OTHER ==
[~2021-08-28] MED LIST changes: +ASPI81TA48; -CYCL-331; +CYCL10TA19; -[UNRECOGNIZED DRUG - CODE]
--- NOTE | 2021-08-29 19:49 | RAD ---
MR#: [id number] Date of Study: 08/28/2021 Ordering Physician: OTTO GARCÍA, Referring Physician: OTTO GARCÍA, Tech: Angelina De Luna RVT, MARLO APPROVED REPORT Patient Location: OUT-PATIENT Indications Claudication: Grayscale images demonstrates moderate diffuse atherosclerosis. Images are mildly technically limite d due to body habitus On the right side there are mostly triphasic waveforms from the common femoral artery to the poplitea l segment. Although velocities are mildly elevated with the common femoral artery no focal stenosis identified. Below the knee there are monophasic waveforms but there is three-vessel runoff with like ly moderate 50% stenosis diffusely. On the left side there again triphasic waveforms with grossly normal velocities from the common femor al artery to the popliteal segment. Below the knee monophasic waveforms are noted in the posterior t ibial vessels. The peroneal artery was not visualized and likely occluded. There are triphasic wave forms noted in the anterior tibial artery with likely greater than 50% stenosis involving the left do rsalis pedis artery. Risk Factors Cardiac Disease Smoking VELOCITY AND DOPPLER WAVEFORM ANALYSIS RIGHT cm/secWaveformSeverity LEFT cm/secWaveform Severity pCFA 230.2TriphasicpCFA 147.1Triphasic Prof Fem Art. 156.0TriphasicProf Fem Art. 62.0Triphasic Fem Art Prox. 144.4TriphasicFem Art Prox. 145.3Triphasic Fem Art Mid. 115.0TriphasicFem Art Mid. 147.5Triphasic Fem Art Dist. 120.6TriphasicFem Art Dist. 99.8Triphasic Pop Art(Fossa) 112.4TriphasicPop Art(AK) 120.7Triphasic GAS STATION SUPERVISOR Prox. 33.9TriphasicPTA Prox. 70.5Monophasic GAS STATION SUPERVISOR Dist. 90.4MonophasicPTA Dist. 65.7Monophasic Per Art Prox. 58.5TriphasicPer Art Prox. WOODY Prox. 73.1MonophasicATA Prox. 68.4Triphasic DPA 124MonophasicDPA 136Triphasic BYPASS GRAFT ANALYSIS RIGHT cm/secWaveform SeverityLEFT cm/secWaveformSeverity Prox. Anastomosis TriphasicProx. Anastomosis Critical Notification Critical Value: No <Conclusion> 1. No focal above-knee disease bilaterally 2. Probable moderate diffuse disease involving the bilateral below-knee vessels without any critical focal obstruction noted Signed by : Jose Naranjo, Electronically Approved : 08/29/2021 19:48:57
== END ==
LOC: US 14:38
PROVIDERS: ATTEND Internal Medicine Cardiovascular Disease
DX: I70.203 Unspecified atherosclerosis of native arteries of extremities, bilateral legs (principal); I25.2 Old myocardial infarction; Z87.891 Personal history of nicotine dependence
CPT/HCPCS: 93925